=== PATIENT | male | born 1970 | race Two or more races ===

== ENCOUNTER 2019-03-11 04:43 | Emergency (ER) | payer OTHER ==
[~2019-03-11] VITALS: Ht 170.2 cm; Wt 100.0 kg
[~2019-03-11 04:43] MED LIST: HYDR-3980 PO; IBUP-1542 PO
[2019-03-11 04:48] VITALS: BP 158/81; PULSE 81; RESP 18; Ht 170.2 cm; Wt 100.0 kg
[2019-03-11] MEDS ORDERED: IBUPROFEN 800 MG TAB PO ONE (05:00)
== END 2019-03-11 05:57 | disposition home or self-care (01) ==
LOC: E/R 04:43
DX: S20.212A Contusion of left front wall of thorax, initial encounter (principal); V49.50XA Passenger injured in collision with unspecified motor vehicles in traffic accident, initial encounter
CPT/HCPCS: 71045